=== PATIENT | male | born 2000 | race Hispanic/Latino ===

== ENCOUNTER 2024-02-10 05:09 | Observation (INO) | payer SELFPAY ==
[2024-02-10 06:38] VITALS: BMI 28.5
[2024-02-10] MEDS ORDERED: Ondansetron PF 4 MG/2 ML Vial IVP PRN (07:36)
[2024-02-10] MEDS ORDERED: Acetaminophen 325 MG TAB PO PRN (07:36)
[2024-02-10] MEDS ORDERED: Ondansetron ODT 4 MG TAB PO PRN (07:36)
[2024-02-10] MEDS: Lactated Ringer's 1,000 ML IV SCH (10:38)
[2024-02-10] MEDS: Pantoprazole 40 MG VIAL IVP SCH (10:39)
[2024-02-10 13:20] LABS: Troponin I Less than 0.010 ng/mL (< 0.028)
[2024-02-10 15:18] VITALS: BP 130/73; TEMP 98.1
[2024-02-10 15:59] LABS: Troponin I Less than 0.010 ng/mL (< 0.028)
[2024-02-10] MEDS ORDERED: Pantoprazole 40 MG VIAL IVP SCH (21:00)
== END 2024-02-10 18:50 | disposition home or self-care (01) ==
LOC: PCU 06:29
PROVIDERS: ADMIT Internal Medicine; ATTEND Internal Medicine
DX: K85.90 Acute pancreatitis without necrosis or infection, unspecified (principal); I49.40 Unspecified premature depolarization; Z79.899 Other long term (current) drug therapy
CPT/HCPCS: 36415; 76700; 93005; 93010; 96374; G0378; J2470